=== PATIENT | male | born 1960 | race Caucasian/White ===

== ENCOUNTER 2025-05-18 21:40 | Emergency (ER) | payer SELFPAY ==
[~2025-05-18] VITALS: Ht 167.6 cm; Wt 70.0 kg
[2025-05-18 21:48] VITALS: O2SAT 99
[2025-05-18] MEDS: SODIUM CHLORIDE 0.9% 1,000 ML IV ONE (22:36)
[2025-05-18] MEDS: ONDANSETRON HCL 4MG/2ML INJ IV ONE (22:36)
[2025-05-18] MEDS: KETOROLAC 15MG/ML VIAL IV ONE (22:37)
[2025-05-18 23:25] LABS: BASOPHILS % 0.1 % (0.0-2.0); EOSINOPHILS % 0.0 % (0.0-5.0); HEMATOCRIT. 49.7 % (42.0-52.0); HEMOGLOBIN. 16.3 g/dL (14.0-18.0); LYMPHOCYTES % 8.3 % (20.0-50.0); MEAN PLATELET VOLUME 8.5 fl (7.4-10.4); MONOCYTES % 3.6 % (2.0-8.0); NEUTROPHILS % 88.0 % (40.0-76.0); PLATELET 133 x1000/uL (130-400); RED BLOOD CELL COUNT 5.30 mill/uL (4.7-6.1); RED CELL DISTRIBUTION WIDTH 13.3 % (11.6-14.6)
[2025-05-18 23:37] LABS: CREATININE 0.8 mg/dL (0.6-1.3)
[2025-05-18 23:38] LABS: UREA NITROGEN BLOOD 12 mg/dL (9-23)
[2025-05-18 23:39] LABS: ASPARTATE AMINOTRANSFERASE 52 IU/L (<34)
[2025-05-18 23:40] LABS: BILIRUBIN DIRECT 0.3 mg/dL (<=3.0); BILIRUBIN TOTAL 1.2 mg/dL (0.1-1.0); PROTEIN TOTAL 6.2 g/dL (6.0-8.3)
[2025-05-18 23:41] LABS: TROPONIN I HIGH SENSITIVITY 6 ng/L (3.0-53)
[2025-05-18 23:44] LABS: CLARITY URINE CLEAR (CLEAR); COLOR URINE YELLOW (YELLOW); GLUCOSE URINE NEGATIVE (NEGATIVE); KETONES URINE 1+ (NEGATIVE); LEUKOCYTE ESTERASE URINE NEGATIVE (NEGATIVE); NITRITE URINE NEGATIVE (NEGATIVE); OCCULT BLOOD URINE 1+ (NEGATIVE); PH URINE 6.5 (4.5-8.0); PROTEIN URINE 1+ (NEGATIVE); SPECIFIC GRAVITY URINE 1.021 (1.005-1.030); UROBILINOGEN URINE 1.0 E.U./dL (0.2-1.0)
[2025-05-19] LABS: *AMPHETAMINES SCREEN URINE NEGATIVE (NEGATIVE); *BARBITURATES SCREEN URINE NEGATIVE (NEGATIVE); *BENZODIAZEPINES SCREEN URINE NEGATIVE (NEGATIVE); *COCAINE SCREEN URINE NEGATIVE (NEGATIVE); CANNABINOID URINE SCREEN NEGATIVE (NEGATIVE); ECSTASY MDMA SCREEN URINE NEGATIVE (NEGATIVE); METHADONE URINE SCREEN NEGATIVE (NEGATIVE); OPIATES URINE SCREEN NEGATIVE (NEGATIVE); PHENCYCLIDINE URINE SCREEN NEGATIVE (NEGATIVE)
[2025-05-19 00:47] LABS: RBC URINE 0-2 /hpf (0-2); WBC URINE 0-2 /hpf (0-2)
[2025-05-19 00:48] LABS: BACTERIA URINE NONE SEEN; SQUAMOUS EPITHELIAL CELL URINE NONE SEEN /lpf (RARE/1+)
[2025-05-19 01:25] VITALS: TEMP 37.3
[2025-05-19 03:23] VITALS: BP 136/76; PULSE 67; RESP 15; O2SAT 100
== END 2025-05-19 03:37 | disposition home or self-care (01) ==
LOC: ER 21:40 → CMPBEDREQ 05-19 07:17
DX: F10.129 Alcohol abuse with intoxication, unspecified (principal); R11.10 Vomiting, unspecified; I49.3 Ventricular premature depolarization; R06.02 Shortness of breath; Z79.899 Other long term (current) drug therapy; Y90.8 Blood alcohol level of 240 mg/100 ml or more
CPT/HCPCS: 80076; 80305; 80048; 81003; 80320; 83880; 83690; 83735; 85025; 84484; 36415; 71045; 93005; 96374; 96375; 99285; J1885; J2405; J7030; G0480